=== PATIENT | male | born 2000 | race Caucasian/White ===

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

== ENCOUNTER 2018-03-15 14:56 | Emergency (ER) | payer OTHER ==
[2018-03-15 15:04] VITALS: BP 121/70; PULSE 67; RESP 18; TEMP 98.4
[2018-03-15] MEDS ORDERED: IBUPROFEN 600 MG TAB PO STA (15:04)
--- NOTE | 2018-03-15 15:21 | ED ---
Lower Extremity Injury HPI - General Chief Complaint: Extremity Injury, Lower Stated Complaint: fall/foot injury Time Seen by Provider: 03/15/18 15:08 Source: patient Mode of arrival: ambulatory Limitations: no limitations - History of Present Illness Initial Comments: 17-year-old male no past medical history presents today for chief complaint of right great toe and forefoot pain after fall at 5 AM. Patient states that he was on his phone, drinking his coffe and multitasking while walking down a flight 5 stairs when he lost his balance tripping and touching his balance with all of his weight on his right great toe. Patient denies falling hitting his head, loss consciousness, injury to any other extremity, numbness, tingling, paresthesias or loss of sensation of the feet bilaterally. Patient states that he was able to ambulate following that injury, he even went to work. However the pain in his great toe and distal forefoot continued so he made appointment with his primary care physician Dr. Shahid. He was seen by Dr. Shahid ground 2 PM this afternoon, who sent him to [facility] for x-rays and further evaluation and treatment. Patient admitted to right great toe and right sided distal forefoot pain with mild swelling. Denies pallor of the feet bilaterally or coolness of extremity. Upon arrival vital signs stable. Patient denies any recent fever, chills, shortness of breath, chest pain, back pain, abdominal pain , nausea or vomiting, numbness or tingling, dysuria or hematuria, constipation or diarrhea, headaches or visual changes, or any other complaints. - Related Data Previous Rx's Medication Instructions Recorded Ondansetron Odt [Zofran Odt] 4 mg PO Q8HR PRN #7 tab 07/31/16 Ibuprofen [Motrin] 800 mg PO Q8H PRN 5 Days #15 tab 03/15/18 Allergies Allergy/AdvReac Type Severity Reaction Status Date / Time No Known Allergies Allergy Verified 03/15/18 15:02 Review of Systems ROS Statement: Those systems with pertinent positive or pertinent negative responses have been documented in the HPI. ROS Other: All systems not noted in ROS Statement are negative. Constitutional: Denies: fever, chills, weakness Respiratory: Denies: cough, dyspnea Cardiovascular: Denies: chest pain, palpitations Endocrine: Denies: fatigue Gastrointestinal: Denies: abdominal pain, nausea, vomiting, diarrhea, constipation Genitourinary: Denies: urgency, dysuria Musculoskeletal: Reports: as per HPI, joint swelling, arthralgia Skin: Denies: rash, lesions, change in color Neurological: Denies: headache, numbness, paresthesias, confusion, abnormal gait Psychiatric: Denies: as per HPI Past Medical History Past Medical History: No Reported History History of Any Multi-Drug Resistant Organisms: None Reported Past Surgical History: No Surgical Hx Reported Past Psychological History: No Psychological Hx Reported Smoking Status: Current every day smoker Past Alcohol Use History: None Reported, Occasional Past Drug Use History: None Reported, Marijuana General Exam - General Exam Comments Initial Comments: General: The patient is awake and alert, in no distress, and does not appear acutely ill. Eye: Pupils are equal, round and reactive to light, extra-ocular movements are intact. No nystagmus. There is normal conjunctiva bilaterally. No signs of icterus. Ears, nose, mouth and throat: There are moist mucous membranes and no oral lesions. Neck: The neck is supple, there is no tenderness or JVD. Cardiovascular: There is a regular rate and rhythm. No murmur, rub or gallop is appreciated. Respiratory: Lungs are clear to auscultation, respirations are non-labored, breath sounds are equal. No wheezes, stridor, rales, or rhonchi. Musculoskeletal: No overlying erythema of the feet bilaterally, mild soft tissue swelling over the right great toe and distal forefoot of the right foot, no obvious deformity or step-off. Patient has full range of motion and strength of the right great toe at the MTP and IP joints. However he admits to pain with range of motion of the right great toe. Patient is tender to palpation over the great toe and right side of the forefoot along the dorsal aspect. Patient has full range of motion and strength of the ankle, knee and hip joints bilaterally. Patient denies any tenderness to range of motion of the ankle, knees or hips bilaterally. Sensation intact of the feet bilaterally. DP pulses equal bilaterally 2+ capillary refill less than 2 seconds. Compartments the foot are soft and compressible Neurological: A&O x 3. CN II-XII intact, There are no obvious motor or sensory deficits. Coordination appears grossly intact. Speech is normal. Skin: Skin is warm and dry and no rashes or lesions are noted. Psychiatric: Cooperative, appropriate mood & affect, normal judgment. Limitations: no limitations Course Vital Signs 03/15/18 15:02 Temperature 98.4 F Pulse Rate 67 Respiratory 18 Rate Blood Pressure 121/70 O2 Sat by Pulse 100 Oximetry Medical Decision Making - Medical Decision Making Patient was given ibuprofen 600mg for pain and ice applied to the foot upon arrival to emergency department. X-ray of the right foot was obtained (-) for fracture or obvious acute process. Patient neurovascularly intact, compartments soft and compressible. Very mild soft tissue swelling. At this time I feel pt has a foot sprain, however there is possibility of occult fracture. Pt to f/u with orthopedics for further evaluation and treatment and possible repeat of xr in 1 week. JULIA bandage applied to foot, pt told to f/u with orthopedics for further recommendation, educated on RICE instructions, and discharged in stable condition with RX for crutches and ibuprofen 800mg. Case discussed with Dr. Liang who agreed with impression and plan. Disposition Clinical Impression: Right foot pain, Right foot sprain Disposition: HOME SELF-CARE Condition: Good Instructions: Foot Sprain (ED) Additional Instructions: Please use medication as discussed. Please follow-up orthopedic f/u in 1-2 days. Please return to emergency room if the symptoms increase or worsen or for any other concerns. Prescriptions: Ibuprofen [Motrin] 800 mg PO Q8H PRN 5 Days #15 tab PRN Reason: Pain Is patient prescribed a controlled substance at d/c from ED?: No Referrals: Tobias Shahid MD [Primary Care Provider] - 1-2 days Otis Dumont MD [STAFF PHYSICIAN] - 1-2 days Time of Disposition: 15:56
--- NOTE | 2018-03-15 15:29 | XR ---
EXAMINATION TYPE: XR foot complete RT DATE OF EXAM: 03/15/2018 COMPARISON: NONE HISTORY: Pain TECHNIQUE: Three views are submitted. FINDINGS: The osseous structures are intact. There is no acute fracture or dislocation. Joint spaces are p reserved. IMPRESSION: 1. No acute fracture or dislocation. If symptoms persist, follow-up exam in 7 to 10 days could be ob tained.
== END 2018-03-15 16:11 | disposition home or self-care (01) ==
LOC: EC 14:56
DX: S93.601A Unspecified sprain of right foot, initial encounter (principal); F17.200 Nicotine dependence, unspecified, uncomplicated; W10.9XXA Fall (on) (from) unspecified stairs and steps, initial encounter; Y93.01 Activity, walking, marching and hiking
CPT/HCPCS: 99283

== ENCOUNTER → 2018-12-19 | Outpatient (CLI) | payer OTHER ==
--- NOTE | 2018-12-20 09:12 | XR ---
EXAMINATION TYPE: XR chest 2V DATE OF EXAM: 12/19/2018 COMPARISON: NONE HISTORY: Chest pain TECHNIQUE: Frontal and lateral views of the chest are obtained. FINDINGS: There is no focal air space opacity. No evidence for pneumothorax. No pleural effusion. The cardiac silhouette size is within normal limits. The osseous structures are grossly intact. IMPRESSION: 1. No acute cardiopulmonary process.
--- NOTE | 2018-12-20 09:15 | XR ---
EXAMINATION TYPE: XR knee complete RT DATE OF EXAM: 12/19/2018 CLINICAL HISTORY: pain TECHNIQUE: Three views of the right knee are obtained. COMPARISON: None. FINDINGS: There is no acute fracture/dislocation. The tri-compartment joint spaces appear within no rmal limits. The overlying soft tissue appears unremarkable. IMPRESSION: There is no acute fracture or dislocation.ICD 10 NO FRACTURE, INITIAL EVALUATION
== END | disposition home or self-care (01) ==
LOC: RADXRMAIN 16:56
PROVIDERS: ATTEND Physician Assistant
DX: Z12.2 Encounter for screening for malignant neoplasm of respiratory organs (principal); F17.200 Nicotine dependence, unspecified, uncomplicated; M25.569 Pain in unspecified knee
CPT/HCPCS: 71046

== ENCOUNTER 2019-05-28 08:31 | Emergency (ER) | payer OTHER ==
[2019-05-28] MEDS ORDERED: PANTOPRAZOLE 40 MG/10 ML VIAL IVP STA (08:41)
[2019-05-28] MEDS ORDERED: diphenhydrAMINE 50 MG/ML 1 ML VIAL IVP STA (08:41)
[2019-05-28] MEDS ORDERED: SODIUM CHLORIDE 0.9% 2,000 ML IV STA (08:41)
[2019-05-28] MEDS ORDERED: ONDANSETRON 4 MG/2 ML VIAL IVP STA (08:41)
[2019-05-28 09:22] LABS: Amorphous Sediment,Urine Occasional /hpf; Appearance,Urine Turbid (Clear); Bilirubin,Urine Negative (Negative); Blood,Urine Negative (Negative); Color,Urine Yellow; Glucose,Urine (UA) Negative (Negative); Ketones,Urine Trace (Negative); Leukocyte Esterase,Urine Negative (Negative); Mucus,Urine Few /hpf; Nitrite,Urine Negative (Negative); PH, Urine 8.5 (5.0-8.0); Protein,Urine 1+ (Negative); RBC,Urine 5 /hpf (0-5); Specific Gravity,Urine 1.021 (1.001-1.035); Urobilinogen,Urine <2.0 mg/dL (<2.0)
[2019-05-28 09:25] LABS: Basophils # (A) 0.1 k/uL (0-0.2); Basophils % (A) 1 %; Eosinophils # (A) 0.1 k/uL (0-0.7); Eosinophils % (A) 2 %; HCT 45.3 % (39.0-53.0); HGB 15.7 gm/dL (13.0-17.5); Lymphocytes # (A) 1.1 k/uL (1.0-4.8); Lymphocytes % (A) 12 %; MCH 32.1 pg (25.0-35.0); MCHC 34.6 g/dL (31.0-37.0); MCV 92.7 fL (80.0-100.0); Mean Platelet Volume 5.2; Monocytes # (A) 0.3 k/uL (0-1.0); Monocytes % (A) 3 %; Neutrophils # (A) 7.4 k/uL (1.3-7.7); Neutrophils % (A) 81 %; Platelet Count 458 k/uL (150-450); RBC 4.89 m/uL (4.30-5.90); RDW 12.2 % (11.5-15.5); WBC 9.1 k/uL (3.8-10.6)
[2019-05-28 09:28] LABS: ALT 26 U/L (21-72); AST 24 U/L (17-59); African American GFR (CKD) >90 (>60 ml/min/1.73 sqM); Alkaline Phosphatase 72 U/L (38-126); Amylase 90 U/L (30-110); Anion Gap 11 mmol/L; Blood Urea Nitrogen 10 mg/dL (9-20); Calcium 10.1 mg/dL (8.4-10.2); Carbon Dioxide 28 mmol/L (22-30); Chloride 105 mmol/L (98-107); Glucose 101 mg/dL (74-99); Potassium 4.1 mmol/L (3.5-5.1); Sodium 144 mmol/L (137-145); Total Bilirubin 0.4 mg/dL (0.2-1.3); Total Protein 8.2 g/dL (6.3-8.2)
--- NOTE | 2019-05-28 09:39 | ED ---
Nausea/Vomiting/Diarrhea HPI - General Chief complaint: Nausea/Vomiting/Diarrhea Stated complaint: POSS ALCOHOL POISENING Time Seen by Provider: 05/28/19 08:41 Source: patient, RN notes reviewed Mode of arrival: ambulatory Limitations: no limitations - History of Present Illness Initial comments: This a 19-year-old male presents emergency Department with chief complaint of nausea vomiting. Patient states that he consumed a large amount of alcohol yes terday. Patient states he woke up in the middle of the night nauseated and started vomiting. Patient states he has been dry heaving at this point. Patient states he is able to keep anything down. Patient states that he is not a daily drinker. Patient states that he binge drank yesterday. Patient states that he felt somewhat states that he saw some specks of blood. Patient states he has no complaints of abdominal pain at this time. - Related Data Allergies Allergy/AdvReac Type Severity Reaction Status Date / Time No Known Allergies Allergy Verified 05/28/19 08:49 Review of Systems ROS Statement: Those systems with pertinent positive or pertinent negative responses have been documented in the HPI. ROS Other: All systems not noted in ROS Statement are negative. Past Medical History Past Medical History: No Reported History History of Any Multi-Drug Resistant Organisms: None Reported Past Surgical History: No Surgical Hx Reported Past Psychological History: No Psychological Hx Reported Smoking Status: Current every day smoker Past Alcohol Use History: Occasional Past Drug Use History: Marijuana General Exam Limitations: no limitations General appearance: alert, in no apparent distress Head exam: Present: atraumatic, normocephalic, normal inspection Eye exam: Present: normal appearance, PERRL, EOMI. Absent: scleral icterus, conjunctival injection, periorbital swelling ENT exam: Present: normal exam, normal oropharynx, mucous membranes moist Neck exam: Present: normal inspection, full ROM. Absent: tenderness, meningismus, lymphadenopathy Respiratory exam: Present: normal lung sounds bilaterally. Absent: respiratory distress, wheezes, rales, rhonchi, stridor Cardiovascular Exam: Present: regular rate, normal rhythm, normal heart sounds. Absent: systolic murmur, diastolic murmur, rubs, gallop, clicks GI/Abdominal exam: Present: soft, normal bowel sounds. Absent: distended, tenderness, guarding, rebound, rigid Neurological exam: Present: alert, oriented X3, CN II-XII intact Skin exam: Present: warm, dry, intact, normal color. Absent: rash Course Vital Signs 05/28/19 08:32 Temperature 98.1 F Pulse Rate 79 Respiratory 18 Rate Blood Pressure 140/76 O2 Sat by Pulse 100 Oximetry Medical Decision Making - Medical Decision Making 19-year-old male presented from it for nausea vomiting. This is alcohol induced. Patient does feel improved after antiemetics, IV fluid hydration. Labs are unremarkable. Patient will be discharged at this time return parameters were discussed. - Lab Data Result diagrams: 05/28/19 09:06 05/28/19 09:06 Lab Results 05/28/19 05/28/19 05/28/19 Range/Units 09:06 09:06 09:06 WBC 9.1 (3.8-10.6) k/uL RBC 4.89 (4.30-5.90) m/uL Hgb 15.7 (13.0-17.5) gm/dL Hct 45.3 (39.0-53.0) % MCV 92.7 (80.0-100.0) fL MCH 32.1 (25.0-35.0) pg MCHC 34.6 (31.0-37.0) g/dL RDW 12.2 (11.5-15.5) % Plt Count 458 H (150-450) k/uL Neutrophils % 81 % Lymphocytes % 12 % Monocytes % 3 % Eosinophils % 2 % Basophils % 1 % Neutrophils # 7.4 (1.3-7.7) k/uL Lymphocytes # 1.1 (1.0-4.8) k/uL Monocytes # 0.3 (0-1.0) k/uL Eosinophils # 0.1 (0-0.7) k/uL Basophils # 0.1 (0-0.2) k/uL Sodium 144 (137-145) mmol/L Potassium 4.1 (3.5-5.1) mmol/L Chloride 105 (98-107) mmol/L Carbon Dioxide 28 (22-30) mmol/L Anion Gap 11 mmol/L BUN 10 (9-20) mg/dL Creatinine 0.64 L (0.66-1.25) mg/dL Est GFR (CKD-EPI)AfAm >90 (>60 ml/min/1.73 sqM) Est GFR (CKD-EPI)NonAf >90 (>60 ml/min/1.73 sqM) Glucose 101 H (74-99) mg/dL Calcium 10.1 (8.4-10.2) mg/dL Total Bilirubin 0.4 (0.2-1.3) mg/dL AST 24 (17-59) U/L ALT 26 (21-72) U/L Alkaline Phosphatase 72 (38-126) U/L Total Protein 8.2 (6.3-8.2) g/dL Albumin 5.0 (3.5-5.0) g/dL Amylase 90 (30-110) U/L Lipase 148 (23-300) U/L Urine Color Yellow Urine Appearance Turbid (Clear) Urine pH 8.5 H (5.0-8.0) Ur Specific Dudley 1.021 (1.001-1.035) Urine Protein 1+ H (Negative) Urine Glucose (UA) Negative (Negative) Urine Ketones Trace H (Negative) Urine Blood Negative (Negative) Urine Nitrite Negative (Negative) Urine Bilirubin Negative (Negative) Urine Urobilinogen <2.0 (<2.0) mg/dL Ur Leukocyte Esterase Negative (Negative) Urine RBC 5 (0-5) /hpf Amorphous Sediment Occasional H (None) /hpf Urine Mucus Few H (None) /hpf Disposition Clinical Impression: Dehydration, Nausea and vomiting Disposition: HOME SELF-CARE Condition: Stable Instructions (If sedation given, give patient instructions): Acute Nausea and Vomiting (ED) Additional Instructions: Please return to the Emergency Department if symptoms worsen or any other concerns. Is patient prescribed a controlled substance at d/c from ED?: No Referrals: Tobias Shahid MD [Primary Care Provider] - 1-2 days Time of Disposition: 10:17
[2019-05-28] MEDS ORDERED: KETOROLAC 30 MG/ML 1 ML VIAL IVP STA (10:10)
[2019-05-28 11:05] VITALS: BP 123/87; PULSE 81; RESP 16; TEMP 97.9
== END 2019-05-28 11:11 | disposition home or self-care (01) ==
LOC: EC 08:31
DX: E86.0 Dehydration (principal); R11.2 Nausea with vomiting, unspecified; R19.7 Diarrhea, unspecified; F17.200 Nicotine dependence, unspecified, uncomplicated
CPT/HCPCS: 36415; 80053; 82150; 83690; 85025; 81001; 99284; 96374; 96375 ×3; 96361 ×2; J1200; J2405; J1885; C9113

== ENCOUNTER → 2019-07-19 | Outpatient (CLI) | payer OTHER ==
--- NOTE | 2019-07-19 09:22 | CT ---
EXAMINATION TYPE: CT brain wo con DATE OF EXAM: 07/19/2019 COMPARISON: 04/01/2017 INDICATION: headaches post multiple traumas DLP: 782.6 mGycm, Automated exposure control for dose reduction was used. CONTRAST: None CT of the brain is performed utilizing 3 mm thick sections through the posterior fossa and 3 mm thick sections through the remaining calvarium. Study is performed within 24 hours of arrival to the hosp ital. No abnormal hyperdensity is present to suggest an acute intracranial hemorrhage. No mass lesion is evident. No acute infarcts are evident. Ventricles and sulci are appropriate for the patient age. Paranasal sinuses and mastoid air cells within the [id number] are clear. IMPRESSIONS: 1. Normal CT Brain
== END | disposition home or self-care (01) ==
LOC: RADCTMAIN 09:00
PROVIDERS: ATTEND Family Medicine
DX: R51 Headache (principal)
CPT/HCPCS: 70450

== ENCOUNTER → 2019-07-27 | Outpatient (CLI) | payer OTHER ==
--- NOTE | 2019-07-27 10:00 | US ---
EXAMINATION TYPE: US abdomen complete DATE OF EXAM: 07/27/2019 COMPARISON: NONE CLINICAL HISTORY: R10.9 Unspecified abdominal pain. Pain EXAM MEASUREMENTS: Liver Length: 14.9 cm Gallbladder Wall: .2 cm CBD: .4 cm Spleen: 11.6 cm Right Kidney: 10.6 x 3.3 x 5.2 cm Left Kidney: 11 x 6.1 x 4.6 cm Pancreas: Tail obscured by overlying bowel gas Liver: wnl Gallbladder: wnl Evidence for sonographic Conroy's sign: No CBD: wnl Spleen: wnl Right Kidney: wnl Left Kidney: wnl Upper IVC: wnl Abd Aorta: wnl The liver is homogenous. The intrahepatic portion of the IVC and proximal abdominal aorta are within normal limits. There is no evidence of cholelithiasis. Common bile duct is unremarkable. The visu alized portions of the pancreas are homogenous. The spleen is unremarkable. Kidneys are symmetric a nd free of hydronephrosis. No renal lesions are seen. IMPRESSION: Unremarkable abdominal ultrasound. No sonographic evidence of cholelithiasis nor acute ch olecystitis.
== END | disposition home or self-care (01) ==
LOC: RADUSWWP 07:27
PROVIDERS: ATTEND Family Medicine
DX: R10.9 Unspecified abdominal pain (principal)
CPT/HCPCS: 76700

== ENCOUNTER 2019-08-17 19:58 | Emergency (ER) | payer OTHER ==
[2019-08-17 20:08] VITALS: TEMP 98
[2019-08-17] MEDS ORDERED: KETOROLAC 30 MG/ML 1 ML VIAL IVP STA (20:41)
[2019-08-17] MEDS ORDERED: SODIUM CHLORIDE 0.9% 1,000 ML IV STA (20:41)
--- NOTE | 2019-08-17 20:49 | ED ---
General Adult HPI - General Chief complaint: Upper Respiratory Infection Stated complaint: Chest pain Time Seen by Provider: 08/17/19 20:22 Source: patient, RN notes reviewed Mode of arrival: ambulatory Limitations: no limitations - History of Present Illness Initial comments: 19-year-old male presents to the emergency department for a chief complaint of chest pain. Patient states this pain has been ongoing for 2 months. States it is getting progressively worse. Patient was seen by primary care several times and had had normal EKGs. States he does not feel he is getting anywhere with this so today presented to the emergency department. States he constantly has a squeezing pain but the intensity changes. He denies any aggravating factors in cluding deep breathing or movement. Patient admits to mild shortness of breath, states he has tried to cut back on smoking but is a daily smoker. He has not had any fevers or chills. States he has felt very shaky. States he always has had shaking of the hands and feet but it has worsened in the past 2 months. He does admit to mild cough that has been ongoing for several months. Patient has no other complaints at this time including abdominal pain, nausea or vomiting, headache, or visual changes. - Related Data Allergies Allergy/AdvReac Type Severity Reaction Status Date / Time No Known Allergies Allergy Verified 08/17/19 20:08 Review of Systems ROS Statement: Those systems with pertinent positive or pertinent negative responses have been documented in the HPI. ROS Other: All systems not noted in ROS Statement are negative. Past Medical History Past Medical History: No Reported History History of Any Multi-Drug Resistant Organisms: None Reported Past Surgical History: No Surgical Hx Reported Past Psychological History: No Psychological Hx Reported Smoking Status: Current every day smoker Past Alcohol Use History: Occasional Past Drug Use History: Marijuana General Exam Limitations: no limitations General appearance: alert, in no apparent distress Head exam: Present: atraumatic, normocephalic, normal inspection Eye exam: Present: normal appearance, PERRL, EOMI. Absent: scleral icterus, conjunctival injection, periorbital swelling ENT exam: Present: normal exam, mucous membranes moist Neck exam: Present: normal inspection, full ROM. Absent: tenderness, meningismus, lymphadenopathy Respiratory exam: Present: normal lung sounds bilaterally. Absent: respiratory distress, wheezes, rales, rhonchi, stridor Cardiovascular Exam: Present: regular rate, normal rhythm, normal heart sounds. Absent: systolic murmur, diastolic murmur, rubs, gallop, clicks GI/Abdominal exam: Present: soft, normal bowel sounds. Absent: distended, tenderness, guarding, rebound, rigid Course Vital Signs 08/17/19 08/17/19 20:06 22:00 Temperature 98 F Pulse Rate 96 81 Respiratory 20 18 Rate Blood Pressure 155/95 121/86 O2 Sat by Pulse 98 97 Oximetry EKG Findings - EKG Comments: EKG Findings:: Normal sinus rhythm, ventricular rate 65, AZ interval 156, QTC 397 Medical Decision Making - Medical Decision Making Vitals are stable. CBC CMP unremarkable. D-dimer is negative. Troponin is negative. EKG is normal sinus rhythm with sinus arrhythmia. Chest x-ray shows no acute process. Patient's pain is not with exertion. It is atypical in nature. At this time patient can be beneficial to follow-up with primary care given his low risk status and return if he has any worsening symptoms. - Lab Data Result diagrams: 08/17/19 21:06 08/17/19 21:06 Lab Results 08/17/19 08/17/19 08/17/19 Range/Units 21:06 21:06 21:06 WBC 5.0 (3.8-10.6) k/uL RBC 4.98 (4.30-5.90) m/uL Hgb 15.8 (13.0-17.5) gm/dL Hct 45.3 (39.0-53.0) % MCV 91.0 (80.0-100.0) fL MCH 31.8 (25.0-35.0) pg MCHC 34.9 (31.0-37.0) g/dL RDW 12.1 (11.5-15.5) % Plt Count 394 (150-450) k/uL Neutrophils % 61 % Lymphocytes % 25 % Monocytes % 6 % Eosinophils % 5 % Basophils % 1 % Neutrophils # 3.1 (1.3-7.7) k/uL Lymphocytes # 1.2 (1.0-4.8) k/uL Monocytes # 0.3 (0-1.0) k/uL Eosinophils # 0.3 (0-0.7) k/uL Basophils # 0.1 (0-0.2) k/uL PT 10.8 (9.0-12.0) sec INR 1.0 (<1.2) APTT 23.7 (22.0-30.0) sec D-Dimer 0.18 (<0.60) mg/L FEU Sodium 139 (137-145) mmol/L Potassium 4.0 (3.5-5.1) mmol/L Chloride 100 (98-107) mmol/L Carbon Dioxide 27 (22-30) mmol/L Anion Gap 12 mmol/L BUN 11 (9-20) mg/dL Creatinine 0.76 (0.66-1.25) mg/dL Est GFR (CKD-EPI)AfAm >90 (>60 ml/min/1.73 sqM) Est GFR (CKD-EPI)NonAf >90 (>60 ml/min/1.73 sqM) Glucose 94 (74-99) mg/dL Calcium 10.1 (8.4-10.2) mg/dL Magnesium 1.8 (1.6-2.3) mg/dL Total Bilirubin 0.6 (0.2-1.3) mg/dL AST 23 (17-59) U/L ALT 17 (4-49) U/L Alkaline Phosphatase 60 (38-126) U/L Troponin I (0.000-0.034) ng/mL Total Protein 7.5 (6.3-8.2) g/dL Albumin 4.6 (3.5-5.0) g/dL Amylase 49 (30-110) U/L Lipase 39 (23-300) U/L 08/17/19 Range/Units 21:06 WBC (3.8-10.6) k/uL RBC (4.30-5.90) m/uL Hgb (13.0-17.5) gm/dL Hct (39.0-53.0) % MCV (80.0-100.0) fL MCH (25.0-35.0) pg MCHC (31.0-37.0) g/dL RDW (11.5-15.5) % Plt Count (150-450) k/uL Neutrophils % % Lymphocytes % % Monocytes % % Eosinophils % % Basophils % % Neutrophils # (1.3-7.7) k/uL Lymphocytes # (1.0-4.8) k/uL Monocytes # (0-1.0) k/uL Eosinophils # (0-0.7) k/uL Basophils # (0-0.2) k/uL PT (9.0-12.0) sec INR (<1.2) APTT (22.0-30.0) sec D-Dimer (<0.60) mg/L FEU Sodium (137-145) mmol/L Potassium (3.5-5.1) mmol/L Chloride (98-107) mmol/L Carbon Dioxide (22-30) mmol/L Anion Gap mmol/L BUN (9-20) mg/dL Creatinine (0.66-1.25) mg/dL Est GFR (CKD-EPI)AfAm (>60 ml/min/1.73 sqM) Est GFR (CKD-EPI)NonAf (>60 ml/min/1.73 sqM) Glucose (74-99) mg/dL Calcium (8.4-10.2) mg/dL Magnesium (1.6-2.3) mg/dL Total Bilirubin (0.2-1.3) mg/dL AST (17-59) U/L ALT (4-49) U/L Alkaline Phosphatase (38-126) U/L Troponin I <0.012 (0.000-0.034) ng/mL Total Protein (6.3-8.2) g/dL Albumin (3.5-5.0) g/dL Amylase (30-110) U/L Lipase (23-300) U/L Disposition Clinical Impression: Atypical chest pain Disposition: HOME SELF-CARE Condition: Good Instructions (If sedation given, give patient instructions): Chest Pain (ED) Additional Instructions: Please follow up with primary care in 1-2 days. Return here to the emergency department if you have any worsening symptoms. Is patient prescribed a controlled substance at d/c from ED?: No Referrals: Tobias Shahid MD [Primary Care Provider] - 1-2 days Time of Disposition: 22:19
[2019-08-17 21:30] LABS: Basophils # (A) 0.1 k/uL (0-0.2); Basophils % (A) 1 %; Eosinophils # (A) 0.3 k/uL (0-0.7); Eosinophils % (A) 5 %; HCT 45.3 % (39.0-53.0); HGB 15.8 gm/dL (13.0-17.5); Lymphocytes # (A) 1.2 k/uL (1.0-4.8); Lymphocytes % (A) 25 %; MCH 31.8 pg (25.0-35.0); MCHC 34.9 g/dL (31.0-37.0); Mean Platelet Volume 6.7; Monocytes # (A) 0.3 k/uL (0-1.0); Monocytes % (A) 6 %; Neutrophils # (A) 3.1 k/uL (1.3-7.7); Neutrophils % (A) 61 %; Platelet Count 394 k/uL (150-450); RBC 4.98 m/uL (4.30-5.90); RDW 12.1 % (11.5-15.5)
[2019-08-17 21:34] LABS: ALT 17 U/L (4-49); AST 23 U/L (17-59); African American GFR (CKD) >90 (>60 ml/min/1.73 sqM); Albumin 4.6 g/dL (3.5-5.0); Alkaline Phosphatase 60 U/L (38-126); Amylase 49 U/L (30-110); Anion Gap 12 mmol/L; Blood Urea Nitrogen 11 mg/dL (9-20); Calcium 10.1 mg/dL (8.4-10.2); Carbon Dioxide 27 mmol/L (22-30); Chloride 100 mmol/L (98-107); Glucose 94 mg/dL (74-99); Magnesium 1.8 mg/dL (1.6-2.3); Non-African American GFR(CKD) >90 (>60 ml/min/1.73 sqM); Sodium 139 mmol/L (137-145); Total Bilirubin 0.6 mg/dL (0.2-1.3); Total Protein 7.5 g/dL (6.3-8.2)
--- NOTE | 2019-08-17 21:36 | XR ---
EXAMINATION TYPE: XR chest 2V DATE OF EXAM: 08/17/2019 COMPARISON: 12/19/2018 INDICATION: Chest pain cough TECHNIQUE: Frontal and lateral views of the chest are obtained. FINDINGS: The heart size is normal. The pulmonary vasculature is normal. The lungs are clear. IMPRESSION: 1. No acute pulmonary process.
[2019-08-17 21:40] LABS: D-Dimer 0.18 mg/L FEU (<0.60); Partial Thromboplastin Time 23.7 sec (22.0-30.0); Prothrombin Time 10.8 sec (9.0-12.0)
[2019-08-17 22:14] VITALS: BP 121/86; PULSE 81; RESP 18
== END 2019-08-17 22:36 | disposition home or self-care (01) ==
LOC: EC 19:58
DX: R07.89 Other chest pain (principal); I49.8 Other specified cardiac arrhythmias; R06.02 Shortness of breath; R05 Cough; R25.9 Unspecified abnormal involuntary movements; F17.200 Nicotine dependence, unspecified, uncomplicated
CPT/HCPCS: 36415; 93005; 85379; 80053; 82150; 83690; 83735; 84484; 85025; 85610; 85730; 71046; 99285; 96374; 96361; J1885

== ENCOUNTER → 2019-09-15 | Outpatient (CLI) | payer OTHER ==
--- NOTE | 2019-09-16 22:37 | XR ---
EXAMINATION TYPE: XR cervical spine comp DATE OF EXAM: 09/15/2019 COMPARISON: None HISTORY: 19-year-old male cervicalgia TECHNIQUE: 5 views FINDINGS: No predental space widening or prevertebral soft tissue swelling. Preserved alignment of the cervical spine with reversal of the normal cervical lordosis. Disc interspaces are relatively maintained. No significant bony neural foraminal narrowing on either side. Patient's head positioning likely account s for slight asymmetry on the odontoid view. IMPRESSION: 1. Slight asymmetry along the clear spaces on the odontoid view may be projectional/positional or due to physiologic laxity. Findings could alternatively reflect a grade 1 atlantoaxial rotary subluxatio n. Clinically correlate. 2. Reversal of the normal cervical lordosis could be positional or due to muscle spasm. No malalignme nt or prevertebral soft tissue swelling.
== END ==
LOC: RADXRMAIN 09:51
PROVIDERS: ATTEND Anesthesiology
DX: S13.120A Subluxation of C1/C2 cervical vertebrae, initial encounter (principal)
CPT/HCPCS: 72050

== ENCOUNTER 2023-12-29 10:53 | Emergency (ER) | payer OTHER ==
--- NOTE | 2023-12-29 12:12 | ED ---
Nausea/Vomiting/Diarrhea HPI - General Chief complaint: Nausea/Vomiting/Diarrhea Stated complaint: Vomiting,Fever Time Seen by Provider: 12/29/23 11:07 Source: patient, RN notes reviewed Mode of arrival: ambulatory Limitations: no limitations - History of Present Illness Initial comments: 23-year-old male presents emergency department complaint of headache, body aches, nausea vomiting patient states that symptoms started around midnight have greatly worsened he has multiple sick contacts at work. He denies any reports of fever but states he has felt hot and cold. He denies any chest pain. Denies any localized abdominal pain or dysuria. - Related Data Previous Rx's Medication Instructions Recorded Ondansetron Odt [Zofran Odt] 4 mg PO Q8HR PRN #10 tab 12/29/23 Allergies Allergy/AdvReac Type Severity Reaction Status Date / Time No Known Allergies Allergy Verified 12/29/23 11:05 Review of Systems ROS Statement: Those systems with pertinent positive or pertinent negative responses have been documented in the HPI. ROS Other: All systems not noted in ROS Statement are negative. Past Medical History Past Medical History: No Reported History History of Any Multi-Drug Resistant Organisms: None Reported Past Surgical History: No Surgical Hx Reported Past Psychological History: No Psychological Hx Reported Smoking Status: Current every day smoker Past Alcohol Use History: Occasional Past Drug Use History: Marijuana General Exam Limitations: no limitations General appearance: alert, in no apparent distress Head exam: Present: atraumatic, normocephalic, normal inspection Eye exam: Present: normal appearance, PERRL, EOMI. Absent: scleral icterus, conjunctival injection, periorbital swelling ENT exam: Present: normal exam, mucous membranes moist Neck exam: Present: normal inspection, full ROM. Absent: tenderness, meningismus, lymphadenopathy Respiratory exam: Present: normal lung sounds bilaterally. Absent: respiratory distress, wheezes, rales, rhonchi, stridor Cardiovascular Exam: Present: regular rate, normal rhythm, normal heart sounds. Absent: systolic murmur, diastolic murmur, rubs, gallop, clicks GI/Abdominal exam: Present: soft, normal bowel sounds. Absent: distended, tenderness, guarding, rebound, rigid Back exam: Absent: CVA tenderness (R), CVA tenderness (L) Neurological exam: Present: alert, oriented X3, CN II-XII intact Course Vital Signs 12/29/23 12/29/23 11:02 13:46 Temperature 97.6 F 98.1 F Pulse Rate 69 75 Respiratory 20 22 Rate Blood Pressure 142/90 121/73 O2 Sat by Pulse 100 99 Oximetry Medical Decision Making - Medical Decision Making Was pt. sent in by a medical professional or institution (, [facility], WINDOWS SECURITY ANALYST, urgent care, hospital, or half-way...) When possible be specific @ -No Did you speak to anyone other than the patient for history (EMS, parent, family, police, friend...)? What history was obtained from this source @ -No Did you review nursing and triage notes (agree or disagree)? Why? @ -I reviewed and agree with nursing and triage notes Were old charts reviewed (outside hosp., previous admission, EMS record, old EKG, old radiological studies, urgent care reports/EKG's, half-way records)? Report findings @ -No old charts were reviewed Differential Diagnosis (chest pain, altered mental status, abdominal pain women, abdominal pain men, vaginal bleeding, weakness, fever, dyspnea, syncope, headache, dizziness, GI bleed, back pain, seizure, CVA, palpatations, mental health, musculoskeletal)? @ -Differential Abdominal Pain Men: Appendicitis, cholecystitis, diverticulosis, ischemic bowel, pancreatitis, hepatitis, UTI, gastroenteritis, AAA, incarcerated hernia, bowel obstruction, constipation, inflammatory bowel, hepatitis, peptic ulcer disease, splenic infarction, perforated viscus, testicular torsion, this is not meant to be an all-inclusive list EKG interpreted by me (3pts min.). @ -None X-rays interpreted by me (1pt min.). @ -None done CT interpreted by me (1pt min.). @ -None done U/S interpreted by me (1pt. min.). @ -None done What testing was considered but not performed or refused? (CT, X-rays, U/S, l abs)? Why? @ -None What meds were considered but not given or refused? Why? @ -None Did you discuss the management of the patient with other professionals (professionals i.e. DENNIS Jones, WINDOWS SECURITY ANALYST, lab, RT, psych nurse, social scientist, cartoon animator, teacher, armored vehicle officer, case coordinator)? Give summary @ -No Was smoking cessation discussed for >3mins.? @ -No Was critical care preformed (if so, how long)? @ -No Were there social determinants of health that impacted care today? How? (Homelessness, low income, unemployed, alcoholism, drug addiction, transportation, low edu. Level, literacy, decrease access to med. care, halfway, rehab)? @ -No Was there de-escalation of care discussed even if they declined (Discuss DNR or withdrawal of care, Hospice)? DNR status @ -No What co-morbidities impacted this encounter? (DM, HTN, Smoking, COPD, CAD, Cancer, CVA, ARF, Chemo, Hep., AIDS, mental health diagnosis, sleep apnea, morbid obesity)? @ -None Was patient admitted / discharged? Hospital course, mention meds given and route, prescriptions, significant lab abnormalities, going to OR and other pertinent info. @ -Discharge patient feels greatly improved after IV fluids and antiemetics laboratory studies unremarkable. Undiagnosed new problem with uncertain prognosis? @ -No Drug Therapy requiring intensive monitoring for toxicity (Heparin, Nitro, Insulin, Cardizem)? @ -No Were any procedures done? @ -No Diagnosis/symptom? @ -Gastroenteritis Acute, or Chronic, or Acute on Chronic? @ -Acute Uncomplicated (without systemic symptoms) or Complicated (systemic symptoms)? @ -Uncomplicated Side effects of treatment? @ -No Exacerbation, Progression, or Severe Exacerbation? @ -No Poses a threat to life or bodily function? How? (Chest pain, [place], [place], pneumonia, PE, COPD, DKA, ARF, appy, cholecystitis, CVA, Diverticulitis, Homicidal, Suicidal, threat to staff... and all critical care pts) @ -No - Lab Data Result diagrams: 12/29/23 11:59 12/29/23 11:59 Lab Results 12/29/23 12/29/23 12/29/23 Range/Units 11:59 11:59 11:59 WBC 9.8 (3.8-10.6) k/uL RBC 4.95 (4.30-5.90) m/uL Hgb 15.7 (13.0-17.5) gm/dL Hct 46.8 (39.0-53.0) % MCV 94.5 (80.0-100.0) fL MCH 31.8 (25.0-35.0) pg MCHC 33.6 (31.0-37.0) g/dL RDW 12.1 (11.5-15.5) % Plt Count 410 (150-450) k/uL MPV 6.9 Neutrophils % 86 % Lymphocytes % 8 % Monocytes % 4 % Eosinophils % 0 % Basophils % 1 % Neutrophils # 8.5 H (1.3-7.7) k/uL Lymphocytes # 0.8 L (1.0-4.8) k/uL Monocytes # 0.4 (0-1.0) k/uL Eosinophils # 0.0 (0-0.7) k/uL Basophils # 0.1 (0-0.2) k/uL Sodium 137 (137-145) mmol/L Potassium 4.5 (3.5-5.1) mmol/L Chloride 102 (98-107) mmol/L Carbon Dioxide 28 (22-30) mmol/L Anion Gap 7 mmol/L BUN 15 (9-20) mg/dL Creatinine 0.51 L (0.66-1.25) mg/dL Est GFR (CKD-EPI)AfAm >90 (>60 ml/min/1.73 sqM) Est GFR (CKD-EPI)NonAf >90 (>60 ml/min/1.73 sqM) Glucose 96 (74-99) mg/dL Calcium 9.8 (8.4-10.2) mg/dL Total Bilirubin 0.9 (0.2-1.3) mg/dL AST 34 (17-59) U/L ALT 29 (4-49) U/L Alkaline Phosphatase 81 (38-126) U/L Total Protein 7.7 (6.3-8.2) g/dL Albumin 4.8 (3.5-5.0) g/dL Lipase 50 (23-300) U/L Influenza Type A (PCR) Not Detected (Not Detectd) Influenza Type B (PCR) Not Detected (Not Detectd) RSV (PCR) Not Detected (Not Detectd) SARS-CoV-2 (PCR) Not Detected (Not Detectd) Disposition Clinical Impression: Gastroenteritis Disposition: HOME SELF-CARE Condition: Stable Instructions (If sedation given, give patient instructions): Acute Nausea and Vomiting (ED) Additional Instructions: Please return to the Emergency Department if symptoms worsen or any other concerns. Prescriptions: Ondansetron Odt [Zofran Odt] 4 mg PO Q8HR PRN #10 tab PRN Reason: Nausea Is patient prescribed a controlled substance at d/c from ED?: No Referrals: Tobias Shahid MD [Primary Care Provider] - 1-2 days Time of Disposition: 13:16
[2023-12-29] MEDS: ONDANSETRON 4 MG/2 ML VIAL IVP STA (12:19)
[2023-12-29] MEDS: KETOROLAC 15 MG/ML 1 ML VIAL IVP STA (12:19)
[2023-12-29] MEDS: SODIUM CHLORIDE 0.9% 2,000 ML IV STA (12:19)
[2023-12-29 12:33] LABS: Basophils # (A) 0.1 k/uL (0-0.2); Basophils % (A) 1 %; Eosinophils % (A) 0 %; HCT 46.8 % (39.0-53.0); HGB 15.7 gm/dL (13.0-17.5); Lymphocytes # (A) 0.8 k/uL (1.0-4.8); Lymphocytes % (A) 8 %; MCH 31.8 pg (25.0-35.0); MCHC 33.6 g/dL (31.0-37.0); MCV 94.5 fL (80.0-100.0); Mean Platelet Volume 6.9; Monocytes # (A) 0.4 k/uL (0-1.0); Monocytes % (A) 4 %; Neutrophils # (A) 8.5 k/uL (1.3-7.7); Neutrophils % (A) 86 %; Platelet Count 410 k/uL (150-450); RBC 4.95 m/uL (4.30-5.90); RDW 12.1 % (11.5-15.5); WBC 9.8 k/uL (3.8-10.6)
[2023-12-29 12:51] LABS: ALT 29 U/L (4-49); AST 34 U/L (17-59); African American GFR (CKD) >90 (>60 ml/min/1.73 sqM); Albumin 4.8 g/dL (3.5-5.0); Alkaline Phosphatase 81 U/L (38-126); Anion Gap 7 mmol/L; Blood Urea Nitrogen 15 mg/dL (9-20); Calcium 9.8 mg/dL (8.4-10.2); Carbon Dioxide 28 mmol/L (22-30); Chloride 102 mmol/L (98-107); Glucose 96 mg/dL (74-99); Lipase 50 U/L (23-300); Non-African American GFR(CKD) >90 (>60 ml/min/1.73 sqM); Potassium 4.5 mmol/L (3.5-5.1); Sodium 137 mmol/L (137-145); Total Bilirubin 0.9 mg/dL (0.2-1.3); Total Protein 7.7 g/dL (6.3-8.2)
[2023-12-29 14:10] VITALS: BP 121/73; PULSE 75; RESP 22; TEMP 98.1
== END 2023-12-29 13:55 | disposition home or self-care (01) ==
LOC: EC 10:53
DX: K52.9 Noninfective gastroenteritis and colitis, unspecified (principal); F17.200 Nicotine dependence, unspecified, uncomplicated; F12.90 Cannabis use, unspecified, uncomplicated
CPT/HCPCS: 36415; 80053; 83690; 85025; 87636; 99284; 96374; 96375; 96361; J2405; J1885

== ENCOUNTER 2024-01-16 20:16 | Emergency (ER) | payer OTHER ==
--- NOTE | 2024-01-16 20:31 | ED ---
Eye Problem HPI - General Stated complaint: left eye irritation Time Seen by Provider: 01/16/24 20:30 Source: patient, RN notes reviewed Mode of arrival: ambulatory Limitations: no limitations - History of Present Illness Initial comments: 23-year-old male presented to ER with a chief complaint of left eye pain. He reports this started on . He does report a possibility of foreign body as he frequently cuts things with circular saws. Tetanus status unknown. He states he has been mainly keeping his eyes shut due to the pain and wearing sunglasses. He is unsure of any double or blurry vision as his glasses are currently broke. He denies any fevers, chills, night sweats or other complaints. - Related Data Previous Rx's Medication Instructions Recorded Ondansetron Odt [Zofran Odt] 4 mg PO Q8HR PRN #10 tab 12/29/23 Allergies Allergy/AdvReac Type Severity Reaction Status Date / Time No Known Allergies Allergy Verified 12/29/23 11:05 Review of Systems ROS Statement: Those systems with pertinent positive or pertinent negative responses have been documented in the HPI. ROS Other: All systems not noted in ROS Statement are negative. Past Medical History Past Medical History: No Reported History History of Any Multi-Drug Resistant Organisms: None Reported Past Surgical History: No Surgical Hx Reported Past Psychological History: No Psychological Hx Reported Smoking Status: Current every day smoker Past Alcohol Use History: Occasional Past Drug Use History: Marijuana General Exam - General Exam Comments Initial Comments: Visual Physical Exam Vital signs reviewed General: Well-appearing, nontoxic, no acute distress. Head: Normocephalic, atraumatic Eyes: PERRLA, EOMI, left eye erythematous ENT: Airway patent Chest: Nonlabored breathing Skin: No visual rash, normal skin tone Neuro: Alert and oriented 3 Musculoskeletal: No gross abnormalities Limitations: no limitations General appearance: alert, in no apparent distress Eye exam: Present: normal appearance, PERRL, EOMI, other (Fluorescein stain negative for uptake. No foreign bodies present on eyelid inversion. Left IOP 16). Absent: scleral icterus, conjunctival injection, periorbital swelling Pupils: Present: normal accommodation ENT exam: Present: normal exam, normal oropharynx, mucous membranes moist Respiratory exam: Present: normal lung sounds bilaterally. Absent: respiratory distress, wheezes, rales, rhonchi, stridor Cardiovascular Exam: Present: regular rate, normal rhythm, normal heart sounds. Absent: systolic murmur, diastolic murmur, rubs, gallop, clicks Skin exam: Present: warm, dry, intact, normal color. Absent: rash Course Vital Signs 01/16/24 01/16/24 20:32 21:36 Temperature 98.7 F 97.1 F L Pulse Rate 82 69 Respiratory 16 18 Rate Blood Pressure 165/91 124/86 O2 Sat by Pulse 99 98 Oximetry Medical Decision Making - Medical Decision Making I performed the quick note portion of this chart. Electronically signed by Lui Cutler PA-C Was pt. sent in by a medical professional or institution (, DENNIS, SCALLOP RAKER, urgent care, hospital, or half-way...) When possible be specific @ -No Did you speak to anyone other than the patient for history (EMS, parent, family, police, friend...)? What history was obtained from this source @ -No Did you review nursing and triage notes (agree or disagree)? Why? @ -I reviewed and agree with nursing and triage notes Were old charts reviewed (outside hosp., previous admission, EMS record, old EKG, old radiological studies, urgent care reports/EKG's, half-way records)? Report findings @ -No old charts were reviewed Differential Diagnosis (chest pain, altered mental status, abdominal pain women, abdominal pain men, vaginal bleeding, weakness, fever, dyspnea, syncope, headache, dizziness, GI bleed, back pain, seizure, CVA, palpatations, mental health, musculoskeletal)? @ -Corneal abrasion, ocular foreign body, hyphema, conjunctivitis, globe rupture, acute angle-closure glaucoma this list is not meant to be all-inclusive EKG interpreted by me (3pts min.). @ -None X-rays interpreted by me (1pt min.). @ -None done CT interpreted by me (1pt min.). @ -None done U/S interpreted by me (1pt. min.). @ -None done What testing was considered but not performed or refused? (CT, X-rays, U/S, labs)? Why? @ -None What meds were considered but not given or refused? Why? @ -None Did you discuss the management of the patient with other professionals (professionals i.e. , DENNIS, SCALLOP RAKER, lab, RT, psych nurse, executive secretary social welfare, military lawyer, teacher, credit control officer, hospice case manager)? Give summary @ -No Was smoking cessation discussed for >3mins.? @ -No Was critical care preformed (if so, how long)? @ -No Were there social determinants of health that impacted care today? How? (Homelessness, low income, unemployed, alcoholism, drug addiction, transportation, low edu. Level, literacy, decrease access to med. care, longterm, rehab)? @ -No Was there de-escalation of care discussed even if they declined (Discuss DNR or withdrawal of care, Hospice)? DNR status @ -No What co-morbidities impacted this encounter? (DM, HTN, Smoking, COPD, CAD, Cancer, CVA, ARF, Chemo, Hep., AIDS, mental health diagnosis, sleep apnea, morbid obesity)? @ -None Was patient admitted / discharged? Hospital course, mention meds given and route, prescriptions, significant lab abnormalities, going to OR and other pertinent info. @ -Discharge. 23-year-old male presented to ER with a chief complaint of left eye pain. History and physical exam completed. Vitals stable. Patient no signs of acute distress and nontoxic-appearing. Left eye erythematous with mild conjunctival injection. Fluorescein stain negative for uptake. Eyelid inversion negative for foreign bodies. Left IOP 16. Pupils equal round and reactive with intact extraocular motions. No pain with extraocular motions. No tenderness with palpation of sinuses. Visual acuity bilaterally 20/200 this is believed to be due to patient not currently wearing corrective lenses as his glasses are broken. It is believed to be conjunctivitis and patient will be started on Tobrex eyedrops. Tetanus updated for possible foreign body. Strict return parameters discussed. Advised patient to follow-up with ophthalmology, referral given. Patient discharged in stable condition. Patient verbally expressed understanding and agreement with care plan. Case discussed with ED attending, Dr. Hayward. Undiagnosed new problem with uncertain prognosis? @ -No Drug Therapy requiring intensive monitoring for toxicity (Heparin, Nitro, Insulin, Cardizem)? @ -No Were any procedures done? @ -No Diagnosis/symptom? @ -Conjunctivitis Acute, or Chronic, or Acute on Chronic? @ -Acute Uncomplicated (without systemic symptoms) or Complicated (systemic symptoms)? @ -Uncomplicated Side effects of treatment? @ -No Exacerbation, Progression, or Severe Exacerbation? @ -No Poses a threat to life or bodily function? How? (Chest pain, [place], [place], pneumonia, PE, COPD, DKA, ARF, appy, cholecystitis, CVA, Diverticulitis, Homicidal, Suicidal, threat to staff... and all critical care pts) @ -No Disposition Clinical Impression: Bacterial conjunctivitis Disposition: HOME SELF-CARE Condition: Stable Instructions (If sedation given, give patient instructions): Conjunctivitis (ED) Additional Instructions: Please use antibiotic eyedrops for 5 days. Follow-up with extrusion die repairer and primary care physician. Return to the ER for any new or worsening concerns. Is patient prescribed a controlled substance at d/c from ED?: No Referrals: Tobias Shahid MD [Primary Care Provider] - 1-2 days Grzegorz Gomez MD [STAFF PHYSICIAN] - 1-2 days Connor Ruiz MD [STAFF PHYSICIAN] - 1-2 days Alex Reese MD [STAFF PHYSICIAN] - 1-2 days Time of Disposition: 21:27
[2024-01-16] MEDS: PROPARACAINE 0.5% OPHTH DROPS 15 ML BTL RIGHT EYE STA (20:45)
[2024-01-16] MEDS: FLUORESCEIN STRIPS 1 MG STRIP RIGHT EYE ONE (20:45)
[2024-01-16] MEDS: DIPH,PERTUS(ACELL)TETVAC-LF 0.5 ML VIAL IM ONE (20:45)
[2024-01-16] MEDS: TOBRAMYCIN 0.3% OPHTH DROPS 5 ML BTL LEFT EYE STA (21:24)
[2024-01-16 21:37] VITALS: BP 124/86; PULSE 69; RESP 18; TEMP 97.1
== END 2024-01-16 21:37 | disposition home or self-care (01) ==
LOC: EC 20:16
DX: H10.89 Other conjunctivitis (principal); F17.200 Nicotine dependence, unspecified, uncomplicated; F12.90 Cannabis use, unspecified, uncomplicated
CPT/HCPCS: 99283